=== PATIENT | male | born 1970 | race Two or more races ===

== ENCOUNTER 2024-01-01 15:26 | Inpatient (IN) | payer MEDICAID, OTHER ==
[~2024-01-01] VITALS: Ht 175.3 cm; Wt 120.0 kg
[2024-01-01 15:50] VITALS: O2SAT 93
[2024-01-01 18:18] LABS: Urine Bacteria None Seen /hpf (None Seen)
[2024-01-01] MEDS: NITROGLYCERIN 2% OINT 1GM PKG TD STA (18:28)
[2024-01-01 18:54] LABS: Urine Blood TRACE /uL (Negative); Urine Clarity Clear (Clear); Urine Color Light-Yellow (Yellow); Urine Protein, UAD 1+ (Negative); Urine Urobilinogen Normal (Negative); Urine WBC <1 /hpf (0 - 3); Urine pH 5.5 (5.0-9.0)
[2024-01-01] MEDS: FUROSEMIDE 40 MG/4 ML VIAL IV ONE (18:59)
[2024-01-01 19:23] LABS: Amphetamine Screen, Urine Pos (NEGATIVE); Barbiturate Scree,Urine Neg (NEGATIVE); Benzodiazephine Screen, Urine Neg (NEGATIVE); Cannabinoid Screen, Urine Pos (NEGATIVE); Cocaine Screen, Urine Neg (NEGATIVE); Opiate Scree,Urine Neg (NEGATIVE); Phencyclidine Screen, Urine Neg (NEGATIVE)
[2024-01-01 19:30] VITALS: PULSE 84; RESP 22; O2SAT 94
[2024-01-01] MEDS: ASPirin 81 mg TAB PO ONE (19:43)
[2024-01-01] MEDS: ONDANSETRON HCL 4 MG/2 ML VIAL IV ONE (19:43)
[2024-01-01] MEDS: ACETAMINOPHEN 325 MG TAB PO ONE (19:44)
[2024-01-01 19:51] LABS: Basophils # (auto) 0 10 ^3/uL (0-0.2); Basophils % (auto) 0.5 % (0.0-2.0); Eosinophils # (auto) 0.1 10 ^3/uL (0-0.8); Eosinophils % (auto) 1.9 % (0.0-7.0); Hematocrit 38.3 % (41.0-53.0); Hemoglobin 12.2 g/dL (13.5-17.5); Lymphocytes # (auto) 1.7 10 ^3/uL (0.4-5.4); Lymphocytes % (auto) 28.4 % (10.0-50.0); Mean Corpuscular Hemoglobin 28.6 pg (28.0-32.0); Mean Corpuscular Hgb Conc. 31.8 g/dL (32.0-36.0); Monocytes # (auto) 0.6 10 ^3/uL (0-1.3); Monocytes % (auto) 10.1 % (0.0-12.0); Neutrophils # (auto) 3.5 10 ^3/uL (1.6-8.6); Neutrophils % (auto) 59.1 % (37.0-80.0); Nucleated Red Blood Cells % 0.1 %; Red Blood Cells 4.26 10^6/uL (4.5-5.90); Red Cell Distribution Width 15.6 % (11.8-14.3); White Blood Cell 5.9 10^3/uL (4.4-10.8)
[2024-01-01 20:07] LABS: INR 1.08 (0.9-1.15); Partial Thromboplastin Time 25.9 SEC (24.5-34.5); Prothrombin Time 11.4 sec (9.3-11.8)
[2024-01-01 20:08] LABS: Alanine Aminotransferase 342 U/L (7-40); Albumin 3.8 g/dL (3.2-4.8); Alkaline Phosphatase 93 U/L (46-116); Anion Gap 6 (5-15); Aspartate Aminotransferase 267 U/L (13-40); BUN/Creatinine Ratio 17.8 (10.0-20.0); Blood Urea Nitrogen 28 mg/dL (9-23); Calcium 9.3 mg/dL (8.7-10.4); Carbon Dioxide 25 mmol/L (20-30); Chloride 110 mmol/L (98-107); Glucose 198 mg/dL (74-106); Magnesium 1.8 mg/dL (1.6-2.6); Potassium 3.4 mmol/L (3.5-5.1); Sodium 141 mmol/L (136-145)
[2024-01-01 20:09] LABS: Bilirubin, Total 0.6 mg/dL (0.2-1.0); Total Protein 6.7 g/dL (5.7-8.2)
[2024-01-01] MEDS ORDERED: NITROGLYCERIN 0.4 MG SL TAB SL PRN (22:45)
[2024-01-01] MEDS ORDERED: DEXTROSE (50%) 50ML SYRG IV PRN (22:45)
[2024-01-01] MEDS ORDERED: ONDANSETRON HCL 4 MG/2 ML VIAL IV PRN (22:45)
[2024-01-01] MEDS ORDERED: MORPHINE SULFATE INJ 2 MG/ml SYRG IV PRN (22:45)
[2024-01-02] MEDS: ACETAMINOPHEN 325 MG TAB PO PRN (02:10)
[2024-01-02 05:04] LABS: Basophils # (auto) 0 10 ^3/uL (0-0.2); Basophils % (auto) 0.4 % (0.0-2.0); Eosinophils # (auto) 0.1 10 ^3/uL (0-0.8); Eosinophils % (auto) 1.6 % (0.0-7.0); Hematocrit 36.6 % (41.0-53.0); Hemoglobin 11.9 g/dL (13.5-17.5); Lymphocytes % (auto) 28.2 % (10.0-50.0); Mean Corpuscular Hgb Conc. 32.5 g/dL (32.0-36.0); Mean Corpuscular Volume 89.2 fL (80.0-100.0); Monocytes # (auto) 0.9 10 ^3/uL (0-1.3); Monocytes % (auto) 12.3 % (0.0-12.0); Neutrophils # (auto) 4.1 10 ^3/uL (1.6-8.6); Neutrophils % (auto) 57.5 % (37.0-80.0); Nucleated Red Blood Cells % 0.1 %; Red Blood Cells 4.11 10^6/uL (4.5-5.90); Red Cell Distribution Width 15.2 % (11.8-14.3); White Blood Cell 7.1 10^3/uL (4.4-10.8)
[2024-01-02 05:09] LABS: Chloride 108 mmol/L (98-107); Potassium 3.5 mmol/L (3.5-5.1); Sodium 141 mmol/L (136-145)
[2024-01-02 05:10] LABS: Anion Gap 7 (5-15); Carbon Dioxide 26 mmol/L (20-30)
[2024-01-02 05:11] LABS: Calcium 9.1 mg/dL (8.7-10.4)
[2024-01-02 05:15] LABS: BUN/Creatinine Ratio 17.7 (10.0-20.0); Blood Urea Nitrogen 29 mg/dL (9-23); Glucose 222 mg/dL (74-106)
[2024-01-02] MEDS: ACCU-CHEK COMFORT CURVE STRIP VI SCH (06:52)
[2024-01-02] MEDS: InsuLIN REG 1unit/0.01ml Soln (100units/ml) SC SCH (06:57)
[2024-01-02 07:45] VITALS: PULSE 91; RESP 20; O2SAT 93
[2024-01-02 09:50] LABS: Magnesium 1.7 mg/dL (1.6-2.6)
[2024-01-02] MEDS ORDERED: ASPirin 81 mg TAB PO SCH (10:00)
[2024-01-02] MEDS ORDERED: CARVEDILOL 3.125 MG TAB PO SCH (10:00)
[2024-01-02] MEDS ORDERED: hydrALAZINE HCL 20 MG/ML VL IV PRN (10:45)
[2024-01-02 11:00] VITALS: BP 140/98; PULSE 81; RESP 18; TEMP 98.2; O2SAT 91
[2024-01-02] MEDS: FUROSEMIDE 40 MG/4 ML VIAL IV SCH (12:13)
[2024-01-02] MEDS: POTASSIUM CHL 20 Meq TABLET PO SCH (12:13)
[2024-01-02] MEDS: SPIRONOLACTONE 25 MG TAB PO SCH (12:13)
[2024-01-02] MEDS: ENOXAPARIN SOD 40 MG/0.4 ML SYRINGE SC SCH (12:14)
[2024-01-02] MEDS: amLODIPine BESYLATE 5 MG TAB PO SCH (12:14)
[2024-01-02] MEDS: cefTRIAXone 1GM/50ML D5W 50 ML IV SCH (13:12)
[2024-01-02 16:41] VITALS: BP 125/86; PULSE 91; RESP 18; TEMP 98.8; O2SAT 96
[2024-01-02] MEDS: AZITHROMYCIN 500MG/ 250ML 250 ML IV SCH (18:57)
[2024-01-02 20:00] VITALS: BP 131/85; PULSE 107; PULSE 78; RESP 18; TEMP 98.5; O2SAT 97
[2024-01-02] MEDS: INSULIN LANTUS (GLARGINE) 1 /0.01ml (100units/ml) SC SCH (20:00)
[2024-01-02] MEDS ORDERED: INSULIN LANTUS (GLARGINE) 1 /0.01ml (100units/ml) SC SCH (20:00)
[2024-01-02 22:00] VITALS: BP 131/85; PULSE 96; RESP 18; TEMP 98.5; O2SAT 97
[2024-01-02] MEDS: ATORVASTATIN 20 MG TAB PO SCH (22:00)
[2024-01-03 01:00] VITALS: BP 132/88; PULSE 68; RESP 18; TEMP 98.6; O2SAT 98
[2024-01-03 05:00] VITALS: BP 143/88; PULSE 86; RESP 20; TEMP 98.3; O2SAT 93
[2024-01-03 09:00] VITALS: BP 158/106; PULSE 82; RESP 20; TEMP 98.4; O2SAT 98
[2024-01-03] MEDS: ASPirin 81 mg TAB PO SCH (09:13)
[2024-01-03 10:22] LABS: Basophils # (auto) 0 10 ^3/uL (0-0.2); Basophils % (auto) 0.5 % (0.0-2.0); Eosinophils # (auto) 0.2 10 ^3/uL (0-0.8); Eosinophils % (auto) 2.3 % (0.0-7.0); Hematocrit 42.6 % (41.0-53.0); Hemoglobin 13.8 g/dL (13.5-17.5); Lymphocytes # (auto) 1.8 10 ^3/uL (0.4-5.4); Lymphocytes % (auto) 27.5 % (10.0-50.0); Mean Corpuscular Hemoglobin 29.6 pg (28.0-32.0); Mean Corpuscular Hgb Conc. 32.5 g/dL (32.0-36.0); Mean Corpuscular Volume 91.1 fL (80.0-100.0); Monocytes # (auto) 0.8 10 ^3/uL (0-1.3); Monocytes % (auto) 12.1 % (0.0-12.0); Neutrophils # (auto) 3.8 10 ^3/uL (1.6-8.6); Neutrophils % (auto) 57.6 % (37.0-80.0); Nucleated Red Blood Cells % 0.1 %; Red Blood Cells 4.68 10^6/uL (4.5-5.90); Red Cell Distribution Width 14.9 % (11.8-14.3); White Blood Cell 6.7 10^3/uL (4.4-10.8)
[2024-01-03 10:40] LABS: Alanine Aminotransferase 281 U/L (7-40); Alkaline Phosphatase 97 U/L (46-116); Anion Gap 7 (5-15); Aspartate Aminotransferase 100 U/L (13-40); BUN/Creatinine Ratio 10.7 (10.0-20.0); Bilirubin, Total 0.5 mg/dL (0.2-1.0); Blood Urea Nitrogen 19 mg/dL (9-23); Calcium 9.3 mg/dL (8.5-10.1); Carbon Dioxide 27 mmol/L (20-30); Chloride 101 mmol/L (98-107); Glucose 318 mg/dL (74-106); Potassium 3.6 mmol/L (3.5-5.1); Total Protein 6.8 g/dL (5.7-8.2)
[2024-01-03 10:43] LABS: Sodium 135 mmol/L (136-145)
[2024-01-03] MEDS ORDERED: SPIR25TA8 PO (12:13)
[2024-01-03] MEDS ORDERED: EMPA1TAB PO (12:13)
[2024-01-03] MEDS ORDERED: SACU1TAB PO (12:13)
[2024-01-03] MEDS ORDERED: AUG875T PO (12:14)
[2024-01-04 09:01] LABS: Hepatitis B Surface Antigen Negative (Negative)
[2024-01-04 09:21] LABS: Hepatitis A Ab IgM Negative
[2024-01-04 09:22] LABS: Hepatitis B Core IgM Negative; Hepatitis C Antibody Negative (Negative)
== END 2024-01-03 17:00 | disposition home or self-care (01) | DRG 133 ==
LOC: ER 15:26 → EDBD 15:26 → TELE 22:43 → TELE-WESTW 01-02 09:56
PROVIDERS: ADMIT Nurse Practitioner; ATTEND Internal Medicine Pulmonary Disease
PROC: 05HF33Z Insertion of Infusion Device into Left Cephalic Vein, Percutaneous Approach (ICD-10-PCS; principal; 2024-01-01)
PROC: B54NZZA Ultrasonography of Left Upper Extremity Veins, Guidance (ICD-10-PCS; 2024-01-01)
DX: J96.01 Acute respiratory failure with hypoxia (principal); N17.0 Acute kidney failure with tubular necrosis; I50.43 Acute on chronic combined systolic (congestive) and diastolic (congestive) heart failure; J15.69 Pneumonia due to other Gram-negative bacteria; I21.A1 Myocardial infarction type 2; I13.0 Hypertensive heart and chronic kidney disease with heart failure and stage 1 through stage 4 chronic kidney disease, or unspecified chronic kidney disease; J15.9 Unspecified bacterial pneumonia; E10.22 Type 1 diabetes mellitus with diabetic chronic kidney disease; F15.10 Other stimulant abuse, uncomplicated; E87.6 Hypokalemia; N18.9 Chronic kidney disease, unspecified; H54.62 Unqualified visual loss, left eye, normal vision right eye; F12.10 Cannabis abuse, uncomplicated; Z88.0 Allergy status to penicillin; Z86.73 Personal history of transient ischemic attack (TIA), and cerebral infarction without residual deficits; Z79.899 Other long term (current) drug therapy
CPT/HCPCS: 36415; 71045; 80048; 80053; 80061; 80074; 80307; 81001; 82962; 83036; 83735; 83880; 84443; 84484; 85025; 85379; 85610; 85730; 93005; 93306; 93970; 96374; 96375; G0378; J1815; J2405